=== PATIENT | male | born 1950 | race Caucasian/White ===

== ENCOUNTER 2023-09-25 07:59 | Outpatient (OUT) | payer OTHER, SELFPAY ==
--- NOTE | 2023-09-25 08:59 | CA_ITS ---
Patient Name: MAYRA JIMENEZ MR#: [id number] : 1950 Exam Date: 09/25/2023 Ordering Doctor: DR. RAN OSBORN ECHOCARDIOGRAM REPORT PROCEDURE: CA ECHO DOPPLER COMPLETE INDICATIONS: Congestive heart failure, smoker, exposed to agent orange COMPARISON: None. DESCRIPTION: COMPLETE ECHOCARDIOGRAM Real-time transthoracic echocardiography with 2D, M-mode, spectral and color flow Doppler performed. QUALITY: Technical quality was good. 71 , 187#, BSA 2.05 m2 LEFT VENTRICLE: Normal chamber size. Mild concentric left ventricular hypertrophy. LV EF: Global left ventricular systolic function is mildly reduced; visually estimated ejection fraction is 45 to 50%. Global hypokinesis. DIASTOLIC: Grade I diastolic dysfunction. ATRIAL SEPTUM: Visually appears intact. LEFT ATRIUM: Normal chamber size. RIGHT ATRIUM: Mild dilatation. RIGHT VENTRICLE: Poorly seen. Normal chamber size. Systolic function appears reduced. TRICUSPID VALVE: Normal mobility and thickness. Mild regurgitation. Doppler studies reveal severely (>60) elevated right sided pressures. RVSP 60 mmHg MITRAL VALVE: Mildly thickened with normal mobility. No evidence of mitral valve stenosis. Mild mitral annular calcification. Trivial mitral regurgitation. AORTIC VALVE: Normal trileaflet appearance. Mildly calcified aortic valve. Normal leaflet mobility. No evidence of aortic valve stenosis. Mild to moderate aortic regurgitation. AORTIC ROOT: Ascending aorta is dilated (5.0 cm) PULMONIC VALVE: Normal thickness and mobility. No stenosis. Trivial regurgitation. PERICARDIUM: No evidence of pericardial effusion. IVC: IVC is normal in size with partial collapse. CONCLUSION: 1. Global left ventricular systolic function is mildly reduced; visually estimated ejection fraction is 45 to 50% 2. The right ventricle is poorly seen; appears normal in size with reduced systolic function 3. Mildly increased left ventricular wall thickness 4. Grade 1 diastolic dysfunction 5. The right atrium is mildly dilated 6. Mild tricuspid regurgitation 7. Severely elevated right ventricular systolic pressure; RVSP 60 mmHg 8. Mild to moderate aortic regurgitation 9. The ascending aorta is severely dilated measuring 5.0 cm Adult Echocardiography Procedure Report Left Ventricle LVEDD (3.7 - 5.6 cm): 4.30 cm LVESD (2.2 - 4.0 cm): 3.32 cm LVIVS thickness (0.6 - 1.2 cm): 1.07 cm LVPW thickness (0.5 - 1.0 cm): 1.18 cm e': 0.08 m/s E - e': 7.31 LVOT Max Gradient: 4.35 mm[Hg] LVOT Area (cm2): 1.04 m/s Peak Velocity (LVOT): 1.04 m/s Mean Velocity (LVOT): 0.57 m/s LVOT Diameter 2.74 cm Left Atrium Left Atrium Systolic Dimension: 3.60 cm Mitral Valve MV E to A Ratio: 0.60 Mitral Valve A-Wave Peak Velocity: 0.94 m/s Mitral Valve E-Wave Peak Velocity: 0.56 m/s Right Ventricle Aorta AO Root Diam: 4.81 cm Aortic Valve AoV Area (Peak David): 5.92 cm2, 5.92 cm2 AoV Area (VTI): 5.53 cm2, 5.53 cm2 Peak Velocity(Antegrade Flow): 1.04 m/s Peak Gradient(Antegrade Flow): 4.32 mm[Hg] Mean Velocity(Antegrade Flow): 0.61 m/s Mean Gradient(Antegrade Flow): 1.72 mm[Hg] Velocity Time Integral: 21.76 cm Tricuspid Valve Peak Velocity (Regurgitant Flow): 3.10 m/s, 3.62 m/s, 3.16 m/s, 3.18 m/s Pulmonic Valve Peak Gradient: 1.98 mm[Hg], 1.60 mm[Hg] Right Atrium Dictated by: Jacobo Lopez M.D. on 09/29/2023 at 11:12 Approved by: Jacobo Lopez M.D. on 09/29/2023 at 11:22
== END 2023-09-25 08:00 | disposition home or self-care (01) ==
PROVIDERS: Family Provider Family Medicine
DX: I50.9 Heart failure, unspecified (principal)
CPT/HCPCS: 93306; 93356